=== PATIENT | male | born 1970 | race Caucasian/White ===

== ENCOUNTER 2017-01-04 06:07 | Day surgery (SDC) | payer BC ==
[~2017-01-04] VITALS: Ht 190.5 cm; Wt 134.3 kg
[~2017-01-04 06:07] MED LIST: BAYER CHEWABLE81 MG PO; CENTRUM MEN'S1 EACH PO; ESTER-C 500 MG1 TAB PO; GLUCOSAMINE & C1 CAP PO; IBUPROFEN200 MG PO; KRILL OIL 1,001 EAC1 PO; LUTEIN20 MG PO; VITAMIN B COMPL1 TAB PO; VITAMIN E400 UNI2 PO
[2017-01-04 06:41] VITALS: BP 134/82; Ht 190.5 cm; Wt 134.3 kg
--- NOTE | 2017-01-04 08:28 | NUR ---
NO PREP, NO COUNTS R/T COLONOSCOPY
--- NOTE | 2017-01-04 08:42 | NUR ---
BOVIE PADS IN PLACE RIGHT THIGH
--- NOTE | 2017-01-04 13:44 | NUR ---
1000-ALERT. RESP WITH EASE. NO NAUSEA. PASSING FLATUS. 1030-FULL LIQUID SERVED. 1100-IV D/C. DISCHARGE INSTRUCTIONS REVIEWED. 1105-D/C VIA WHEELCHAIR WITH .
--- NOTE | 2017-01-08 10:04 | HP ---
PATIENT: AMBROSIO LAZCANO MEDICAL RECORD: [id number] ACCOUNT: [id number] LOCATION:DGageOPS : 74 ADMISSION DATE: 01/04/17 HISTORY AND PHYSICAL EXAMINATION CHIEF COMPLAINT: Colon polyps. HISTORY OF PRESENT ILLNESS: The patient is here for surveillance colonoscopy. He had a number of colon polyps that were removed last year. I have reviewed the pathology of those colon polyps. The patient is here for a surveillance colonoscopy. The most worrisome of those polyps last year was tattooed. The risks, possible complications and alternatives to colonoscopy and polypectomy utilizing argon plasma energy efficiency finance manager were explained to the patient. He elects to proceed. ALLERGIES: No known drug allergies. HOME MEDICATIONS: LUTEIN WELL ASPIRIN. SOCIAL HISTORY: He is a smoker. I have advised him to quit smoking. PAST MEDICAL AND SURGICAL HISTORY: Arm surgery as well as a prior colonoscopy. REVIEW OF SYSTEMS: Negative for CVA or seizures. Negative for diabetes or thyroid problems. PHYSICAL EXAMINATION: GENERAL: The patient does not appear acutely ill. He does not appear chronically ill. VITAL SIGNS: Reviewed. HEAD: External ears appear normal. EYES: Extraocular movements are intact. NECK: Trachea is midline. CHEST: No intercostal retractions. PULMONARY: Nonlabored, no stridor. ABDOMEN: Nontender. IMPRESSION: History of complex colon polyps. PLAN: Colonoscopy and polypectomy utilizing argon plasma energy efficiency finance manager. TRANSINT:[id number] Voice Confirmation ID: [id number] DOCUMENT ID: [id number] ANGÉLICA AGOSTO MD at 1004 CC: EMELY OBRIEN DO [id number] DICTATION DATE: 01/04/17 0959 OIL SPECULATOR: 01/04/17 1042 [facility] 01/04/17 [facility] [address] [id number]
--- NOTE | 2017-01-08 10:04 | OP ---
PATIENT NAME: AMBROSIO LAZCANO MEDICAL RECORD: [id number] :74 LOCATION:D.OPS ADMISSION DATE: SURGEON: ZAY AGOSTO MD DATE OF OPERATION: 01/04/2017 PREOPERATIVE DIAGNOSIS: History of multiple colon polyps. POSTOPERATIVE DIAGNOSES: History of multiple colon polyps with minimal regrowth of a colon polyp that was tattooed. Other than that, there were 3 more sessile colon polyps, which were removed utilizing a hot biopsy forceps polypectomy technique. PROCEDURES: 1. Total colonoscopy to cecum. 2. Polypectomy and ablation utilizing the argon plasma physicians and surgeons, which is a radiofrequency type of ablation of benign colonic process. 3. Hot biopsy forceps polypectomies times 3. SURGEON: Zay Agosto MD. LANGUAGE TRANSLATOR: None. BLOOD LOSS: Minimal. ANESTHESIA: General. COMPLICATIONS: None. The risks, possible complications and alternatives to procedure were explained to the patient. He elects to proceed. OPERATIVE COURSE: The patient was conveyed to the operating room electively on 01/04/2017. General anesthesia was induced by the anesthesia staff. The patient was placed in the Sargent position. A digital rectal examination was performed. The prostate was without nodules. It was symmetric and soft. A colonoscope was inserted through the anus. It was easily advanced to the cecum. The prep was excellent. I slowly withdrew the endoscope. I irrigated and aspirated extensively. I dragged the folds. The pullback was greater than a 14-minute pullback. The tattooed area was easily identifiable. There was a small amount of regrowth of the polyp. This was biopsied and then the area was ablated with the argon plasma physicians and surgeons utilizing the right colon setting in the forced mode. In the rectum, more polyps were identified. The polyps were removed utilizing argon plasma physicians and surgeons. There was 1 cluster of 3 polyps, which was included in one of the specimen containers. The specimens were removed in their entireties. A retroflexed view was obtained in the rectum. I then unretroflexed the scope and removed it under direct vision. During this procedure, a combination of direct imaging and narrow band imaging were utilized. I will see the patient in my office in 2-3 weeks. I will plan for his next colonoscopy to take place in the GI lab with anesthesia not utilizing the argon plasma physicians and surgeons. OPERATIVE REPORT [id number] AMBROSIO LAZCANO TRANSINT:[id number] Voice Confirmation ID: [id number] DOCUMENT ID: [id number] ZAY AGOSTO MD at 1004 CC: EMELY OBRIEN DO [id number] DICTATION DATE: 01/04/17 1003 AGRICULTURAL PRODUCE COMMISSION AGENT: 01/04/172034 [facility] 01/04/17 [facility] [address] [id number]
== END 2017-01-04 11:05 | disposition home or self-care (01) ==
LOC: D.OPS 06:07 → D.PAN 10:00 → D.OPS 11:05
DX: K63.5 Polyp of colon (principal); F17.200 Nicotine dependence, unspecified, uncomplicated; Z80.0 Family history of malignant neoplasm of digestive organs; Z01.812 Encounter for preprocedural laboratory examination

== ENCOUNTER 2019-06-16 06:25 | Day surgery (SDC) | payer BC ==
[~2019-06-16] VITALS: Ht 190.5 cm; Wt 140.0 kg
[2019-06-16] MEDS ORDERED: PROVIGIL200 MG PO (08:49)
[2019-06-16 08:52] VITALS: BP 138/79; Ht 190.5 cm; Wt 140.0 kg
--- NOTE | 2019-06-16 11:13 | NUR ---
1113 IV REMOVED AND INSTRUCTIONS GIVEN TO PT
--- NOTE | 2019-06-16 11:17 | OP ---
PATIENT NAME: AMBROSIO LAZCANO MEDICAL RECORD: [id number] :74 LOCATION:D.OPS ADMISSION DATE: SURGEON: ZAY AGOSTO MD DATE OF OPERATION: 06/16/2019 PREOPERATIVE DIAGNOSES: 1. History of multiple colorectal polyps. 2. History of a worrisome colon polyp at 60 cm, which has been tattooed. POSTOPERATIVE DIAGNOSES: 1. History of multiple colorectal polyps. 2. History of a worrisome colon polyp at 60 cm, which has been tattooed. 3. Perhaps some polypoid regrowth right next to the area of tattooing. 4. Six other sessile polyps, which were all small, less than 7 mm in diameter and I felt could be ablated rather than biopsied. PROCEDURES: 1. Total colonoscopy to cecum. 2. Polypectomy utilizing the argon plasma purchasing and claims supervisor. 3. Ablation of 6 colorectal polyps with the argon plasma purchasing and claims supervisor. SURGEON: Zay Agosto MD RACK WASHER: None. BLOOD LOSS: Minimal. ANESTHESIA: IV sedation. COMPLICATIONS: None. ENDOSCOPIC COURSE: The patient was conveyed to the endoscopy suite electively on 06/16/2019. IV sedation was induced by the anesthesia staff. The patient was placed in the Sargent position. A digital rectal examination was performed. The prostate was without nodules and was symmetric. A colonoscope was inserted through the anus. It was easily advanced to the cecum. The prep was adequate. I slowly withdrew the endoscope. A combination of normal imaging and narrow band imaging were utilized. I dragged the folds. I irrigated and aspirated extensively. At 60 cm, the tattooed area was easily identified. On one side of that tattoo, it appeared that there may have been some polypoid regrowth. Cold endoscopic biopsies were performed. The polypectomy was then completed utilizing ablation with the argon plasma purchasing and claims supervisor utilizing the right colon setting in the forced mode. I then slowly withdrew the endoscope. Six other small polyps were noted and these were ablated with the argon plasma purchasing and claims supervisor. A retroflexed view was obtained in the rectum. I then unretroflexed the scope and removed it under direct vision. I will see the patient in my office in 2-3 weeks. It is very likely, I will recommend that his next colonoscopy to take place in 3 years. TRANSINT:[id number] Voice Confirmation ID: [id number] DOCUMENT ID: [id number] OPERATIVE REPORT [id number] AMBROSIO LAZCANO ROBERT MD at 1117 CC: EMELY OBRIEN DO [id number] DICTATION DATE: 06/16/19 1051 ENVIRONMENTAL EDUCATOR: 06/16/19 1114 [facility] [address] [id number]
--- NOTE | 2019-06-16 11:28 | NUR ---
1130 PT LEFT PRIOR TO RIDE COMING UP TO FLOOR. IV REMOVED
== END 2019-06-16 11:29 | disposition home or self-care (01) ==
LOC: D.OPS 06:25
PROVIDERS: ATTEND Surgery
DX: Z86.010 Personal history of colon polyps (principal); D12.7 Benign neoplasm of rectosigmoid junction

== ENCOUNTER 2019-06-19 15:27 | Inpatient (IN) | payer BC ==
[~2019-06-19] VITALS: Ht 190.5 cm; Wt 135.9 kg
[~2019-06-19 15:27] MED LIST changes: +PROVIGIL200 MG PO
[2019-06-19 16:12] LABS: BASOPHILS 0.2 % (0-2); EOSINOPHILS 0.7 % (0-7); HEMOGLOBIN 14.7 g/dL (13.5-17.5); IMMATURE GRANULOCYTES 0.2 % (0-5); LYMPHOCYTES 24.3 % (15-50); MCH 29.5 pg (26.0-34.0); MCHC 33.4 g/dL (31.0-37.0); MCV 88.2 fL (80.0-100.0); MEAN PLATELET VOLUME 9.6 fL (7.4-10.4); MONOCYTES 9.6 % (2-11); PLATELET COUNT 223 10x3/uL (130-400); RBC 4.99 10x6/uL (4.20-6.10); RDW 12.8 % (11.5-14.5); WBC 13.3 10x3/uL (4.8-10.8)
[2019-06-19 16:24] LABS: APPEARANCE CLEAR (CLEAR); BILIRUBIN NEGATIVE (NEGATIVE); COLOR YELLOW (YELLOW); GLUCOSE NEGATIVE (NEGATIVE); KETONE NEGATIVE (NEGATIVE); NITRITE NEGATIVE (NEGATIVE); PROTEIN NEGATIVE (NEGATIVE); UROBILINOGEN NORMAL (NORMAL)
[2019-06-19 16:25] LABS: BACTERIA FEW /hpf (NEGATIVE); RED CELLS - URINE OCC /hpf (0-5); WHITE CELLS - URINE 0-5 /hpf (NEGATIVE)
[2019-06-19 16:29] LABS: CALC OSMOLALITY 278 mosm/kg (275-300); CALCIUM 9.1 mg/dL (8.5-10.1); CHLORIDE - SERUM 103 mmol/L (98-107); GLUCOSE 93 mg/dL (74-106); POTASSIUM - SERUM 3.9 mmol/L (3.5-5.1); SODIUM 139 mmol/L (136-145); UREA NITROGEN 14 mg/dL (7-18); eGFR NON AFRICAN AMERICAN 85 mL/min (90-120)
[2019-06-19 16:34] LABS: ALBUMIN 3.6 g/dL (3.4-5.0); ALKALINE PHOSPHATASE 74 U/L (46-116); ALT (SGPT) 39 U/L (10-68); AMYLASE - SERUM 35 U/L (25-115); BILIRUBIN - TOTAL 1.08 mg/dL (0.2-1.3); LIPASE 110 U/L (73-393)
[2019-06-19 16:35] LABS: TROPONIN-I < 0.017 ng/mL (0.000-0.060)
[2019-06-19 20:37] VITALS: BP 121/85
--- NOTE | 2019-06-19 21:31 | NUR ---
RECEIVED FROM ER VIA WHEELCHAIR. ALERT.ORIENTED. CHEIF COMPLAINT ABD PAIN. IV TO RAC INTACT WITHOUT REDNESS OR EDEMA NOTED. ORIENTED TO ROOM. CL IN REACH
[2019-06-20] VITALS: BP 137/77
[2019-06-20 00:15] VITALS: BP 137/77; BMI 37.4
--- NOTE | 2019-06-20 00:31 | NUR ---
ADMISSION ASSESSMENT COMPLETE.
[2019-06-20 04:00] VITALS: BP 116/63
[2019-06-20 06:49] LABS: ALBUMIN 3.2 g/dL (3.4-5.0); ALKALINE PHOSPHATASE 66 U/L (46-116); ALT (SGPT) 33 U/L (10-68); BILIRUBIN - TOTAL 1.35 mg/dL (0.2-1.3); CALC OSMOLALITY 279 mosm/kg (275-300); CALCIUM 8.5 mg/dL (8.5-10.1); CHLORIDE - SERUM 106 mmol/L (98-107); GLUCOSE 89 mg/dL (74-106); POTASSIUM - SERUM 4.2 mmol/L (3.5-5.1); PROTEIN - SERUM 6.2 g/dL (6.4-8.2); SODIUM 141 mmol/L (136-145); UREA NITROGEN 12 mg/dL (7-18); eGFR NON AFRICAN AMERICAN 85 mL/min (90-120)
--- NOTE | 2019-06-20 06:50 | NUR ---
ALERT AND ORIENTED, RESTING IN BED. NO C/O PAIN. NO S/S OF ACUTE DISTRESS NOTED. IV TO RIGHT AC, NS INFUSING @ 200ML/HR. SITE PATENT WITHOUT REDNESS OR SWELLING. DENIES ANY NEEDS AT THIS TIME. CALL LIGHT IN REACH. WILL CONTINUE TO MONITOR.
[2019-06-20 07:05] LABS: BASOPHILS 0.1 % (0-2); EOSINOPHILS 0.8 % (0-7); HEMATOCRIT 41.6 % (42.0-54.0); HEMOGLOBIN 13.9 g/dL (13.5-17.5); IMMATURE GRANULOCYTES 0.3 % (0-5); LYMPHOCYTES 19.4 % (15-50); MCH 29.4 pg (26.0-34.0); MCHC 33.4 g/dL (31.0-37.0); MCV 88.1 fL (80.0-100.0); MEAN PLATELET VOLUME 10.1 fL (7.4-10.4); NEUTROPHILS 70.4 % (40-80); PLATELET COUNT 218 10x3/uL (130-400); RBC 4.72 10x6/uL (4.20-6.10); RDW 12.9 % (11.5-14.5); WBC 11.1 10x3/uL (4.8-10.8)
[2019-06-20 08:25] VITALS: Ht 190.5 cm; Wt 135.9 kg
[2019-06-20 08:26] VITALS: BP 112/73
[2019-06-20 16:23] VITALS: BP 127/78
--- NOTE | 2019-06-20 18:48 | NUR ---
ALERT AND ORIENTED, SITTING UP IN BED. FAMILY AT BEDSIDE. NO C/O PAIN. NO S/S OF ACUTE DISTRESS NOTED. DENIES ANY NEEDS AT THIS TIME. CALL LIGHT IN REACH. WILL CONTINUE TO MONITOR.
[2019-06-20 20:00] VITALS: BP 140/76
--- NOTE | 2019-06-20 20:45 | NUR ---
RESTING QUEITLY WITH NO DISTRESS NOTED. RESP UNLABORED. IV TO RAC WITHOUT REDNESS OR EDEMA NOTED. CL IN REACH
[2019-06-21] VITALS: BP 109/67
--- NOTE | 2019-06-21 05:48 | NUR ---
I have reviewed this patient and I concur with the Shift Assessment completed by the Licensed Practical Nurse today this shift.
[2019-06-21 06:12] LABS: BASOPHILS 0.3 % (0-2); HEMATOCRIT 39.1 % (42.0-54.0); HEMOGLOBIN 13.1 g/dL (13.5-17.5); IMMATURE GRANULOCYTES 0.3 % (0-5); LYMPHOCYTES 19.9 % (15-50); MCH 29.4 pg (26.0-34.0); MCHC 33.5 g/dL (31.0-37.0); MCV 87.7 fL (80.0-100.0); MEAN PLATELET VOLUME 9.7 fL (7.4-10.4); MONOCYTES 8.8 % (2-11); NEUTROPHILS 69.7 % (40-80); PLATELET COUNT 217 10x3/uL (130-400); RBC 4.46 10x6/uL (4.20-6.10); RDW 12.6 % (11.5-14.5)
[2019-06-21 06:13] LABS: WBC 7.8 10x3/uL (4.8-10.8)
[2019-06-21 06:25] LABS: CALC OSMOLALITY 279 mosm/kg (275-300); CALCIUM 8.3 mg/dL (8.5-10.1); CARBON DIOXIDE 22.8 mmol/L (21.0-32.0); CHLORIDE - SERUM 107 mmol/L (98-107); GLUCOSE 78 mg/dL (74-106); POTASSIUM - SERUM 3.8 mmol/L (3.5-5.1); SODIUM 141 mmol/L (136-145); UREA NITROGEN 12 mg/dL (7-18); eGFR NON AFRICAN AMERICAN 85 mL/min (90-120)
--- NOTE | 2019-06-21 07:00 | NUR ---
ALERT AND ORIENTED, SITTING UP IN BED. NO C/O PAIN. NO S/S OF ACUTE DISTRESS NOTED. IV TO RIGHT AC, NS INFUSING @ 200ML/HR. SITE PATENT WITHOUT REDNESS OR SWELLING. DENIES ANY NEEDS AT THIS TIME. CALL LIGHT IN REACH. WILL CONTINUE TO MONITOR.
[2019-06-21 07:57] VITALS: BP 132/77
--- NOTE | 2019-06-21 09:23 | NUR ---
AWAKE AND ON COMPUTER. DENIES NEEDS.CALL LIGHT IN REACH
[2019-06-21 12:11] VITALS: BP 139/86
[2019-06-21 16:19] VITALS: BP 121/78
--- NOTE | 2019-06-21 18:37 | NUR ---
ALERT AND ORIENTED, RESTING IN BED. DENIES ANY NEEDS AT THIS TIME. CALL LIGHT IN REACH. WILL CONTINUE TO MONITOR.
--- NOTE | 2019-06-21 19:45 | NUR ---
AWAKE,ALERT.NO COMPLAITNS VOICED. RESP EVEN AND UNALBORED. NO DISTRESS NOTED. IV TO LAC INTACT WITHOUT REDNESS OR EDEMA NOTED. CL IN REACH.
[2019-06-21 20:52] VITALS: BP 135/85
--- NOTE | 2019-06-22 02:45 | NUR ---
I have reviewed this patient and I concur with the Shift Assessment completed by the Licensed Practical Nurse today this shift.
[2019-06-22 05:45] VITALS: BP 118/67
[2019-06-22 05:47] LABS: BASOPHILS 0.3 % (0-2); EOSINOPHILS 1.5 % (0-7); HEMATOCRIT 39.6 % (42.0-54.0); HEMOGLOBIN 13.3 g/dL (13.5-17.5); IMMATURE GRANULOCYTES 0.3 % (0-5); LYMPHOCYTES 20.8 % (15-50); MCH 29.3 pg (26.0-34.0); MCHC 33.6 g/dL (31.0-37.0); MCV 87.2 fL (80.0-100.0); MEAN PLATELET VOLUME 9.2 fL (7.4-10.4); MONOCYTES 10.3 % (2-11); NEUTROPHILS 66.8 % (40-80); PLATELET COUNT 231 10x3/uL (130-400); RBC 4.54 10x6/uL (4.20-6.10); RDW 12.5 % (11.5-14.5); WBC 6.7 10x3/uL (4.8-10.8)
[2019-06-22 06:20] LABS: CALC OSMOLALITY 278 mosm/kg (275-300); CALCIUM 8.4 mg/dL (8.5-10.1); CARBON DIOXIDE 24.9 mmol/L (21.0-32.0); CHLORIDE - SERUM 107 mmol/L (98-107); GLUCOSE 91 mg/dL (74-106); SODIUM 141 mmol/L (136-145); UREA NITROGEN 8 mg/dL (7-18); eGFR NON AFRICAN AMERICAN 85 mL/min (90-120)
--- NOTE | 2019-06-22 07:41 | NUR ---
AWAKE AND ALERT. ORIENTED X3. LUNGS ARE CLEAR BILATERALLY, NO COUGH NOTED. SKIN IS INTACT WITHOUT REDNESS. IV TO RIGHT AC IS PATENT WITHOUT REDNESS AT INSERTION SITE. DENIES NEEDS.
[2019-06-22 08:38] VITALS: BP 135/87
--- NOTE | 2019-06-22 09:30 | NUR ---
TOOK AM MEDS AFTER DISCUSSED NEED FOR SAME WITH NURSE. ALL QUESTIONS ANSWERED. UP TO SHOWER WITH SET UP ASSISTANCE ONLY.
[2019-06-22 12:48] VITALS: BP 136/86
--- NOTE | 2019-06-22 13:21 | NUR ---
WAS ABLE TO FEED SELF LUNCH WITH SET UP ASSISTANCE. NO NEEDS NOTED.
--- NOTE | 2019-06-22 13:22 | NUR ---
SITTING UP IN BED EATING REGULAR DIET. NO C/O PAIN OR NAUSEA WITH MEAL. WILL MONITOR.
[2019-06-22 16:43] VITALS: BP 129/85
--- NOTE | 2019-06-22 19:08 | NUR ---
ATE ALL OF SUPPER WITHOUT C/O NAUSEA OR PAIN. DENIES NEEDS. NO CHANGES NOTED.
[2019-06-22 20:20] VITALS: BP 143/94
--- NOTE | 2019-06-22 21:30 | NUR ---
A&O X 4. DENIES PAIN, TOLERATING REGULAR DIET. REPORTS LAST BM WAS JUST PRIOR TO ME ENTERING ROOM, STATES IT WAS SOFT, NON FORMED AND WOULD LIKE TO SKIP NEXT DOSE OF MIRALAX. WILL CONTINUE TO MONITOR.
--- NOTE | 2019-06-22 21:30 | NUR ---
REFUSES MIDNIGHT VITALS
--- NOTE | 2019-06-23 04:35 | NUR ---
I have reviewed this patient and I concur with the Shift Assessment completed by the Licensed Practical Nurse today this shift.
[2019-06-23 05:48] LABS: BASOPHILS 0.2 % (0-2); EOSINOPHILS 1.4 % (0-7); HEMATOCRIT 41.3 % (42.0-54.0); HEMOGLOBIN 13.9 g/dL (13.5-17.5); IMMATURE GRANULOCYTES 0.2 % (0-5); LYMPHOCYTES 21.6 % (15-50); MCH 29.2 pg (26.0-34.0); MCHC 33.7 g/dL (31.0-37.0); MCV 86.8 fL (80.0-100.0); MEAN PLATELET VOLUME 9.5 fL (7.4-10.4); MONOCYTES 10.1 % (2-11); NEUTROPHILS 66.5 % (40-80); PLATELET COUNT 257 10x3/uL (130-400); RBC 4.76 10x6/uL (4.20-6.10); RDW 12.2 % (11.5-14.5)
[2019-06-23 05:54] LABS: WBC 8.5 10x3/uL (4.8-10.8)
[2019-06-23 05:58] LABS: CALC OSMOLALITY 281 mosm/kg (275-300); CALCIUM 8.8 mg/dL (8.5-10.1); CARBON DIOXIDE 26.3 mmol/L (21.0-32.0); CHLORIDE - SERUM 105 mmol/L (98-107); CREATININE - SERUM 0.9 mg/dL (0.6-1.3); GLUCOSE 96 mg/dL (74-106); POTASSIUM - SERUM 4.2 mmol/L (3.5-5.1); SODIUM 142 mmol/L (136-145); UREA NITROGEN 9 mg/dL (7-18); eGFR NON AFRICAN AMERICAN > 90 mL/min (90-120)
--- NOTE | 2019-06-23 07:58 | NUR ---
AWAKE AND ALERT.ORIENTED X3. NO C/O AT THIS TIME. LUNGS ARE CLEAR BILATERALLY, NO COUGH NOTED. SKIN IS INTACT WITHOUT REDNESS. IV TO RIGHT AC IS PATENT WITHOUT REDNESS AT INSERTION SITE. UP TO BR PER SELF. DENIES NEEDS.
[2019-06-23 08:05] VITALS: BP 168/93
--- NOTE | 2019-06-23 09:00 | NUR ---
UP TO SHOWER WITH SET UP ASSISTANCE. NO C/O AT THIS TIME.
--- NOTE | 2019-06-23 10:08 | MORECARE ---
CASE MANAGEMENT DISCHARGE SUMMARY PATIENT: AMBROSIO DENNISON UNIT: [id number] ADM DATE: 06/19/19 AGE: 49 : 74 SEX: M ROOM/BED: D.2225 AUTHOR: BECKIE,DOC PHYSICIAN: REFERRING PHYSICIAN: ANGÉLICA AGOSTO MD DATE OF SERVICE: 06/23/19 Discharge Plan Patient Name: AMBROSIO DENNISON Facility[facility] : 1970 Planned Disposition: Home Anticipated Discharge Date: 06/23/19 Discharge Date: Expected LOS: 4 Initial Reviewer: [email or web address] Initial Review Date: 06/23/2019 Generated: 06/23/19 11:08 am Comments DCP- Discharge Planning Updated by [email or web address]: Jenny Flowers on 06/23/19 9:[address] Patient Name: AMBROSIO DENNISON Admission Status: ER Accout number: [id number] Admission Date: 06-19-2019 : 1970 Admission Diagnosis: Attending: ANGÉLICA AGOSTO Current LOS: 4 Anticipated DC Date: 06-23-2019 Planned Disposition: Home Primary Insurance: [employer] OUT OF STATE Discharge Planning Comments: CM met with patient to complete initial dc planning assessment. CM educated patient on the CM role and verbal consent given by patient to complete assessment. Patient lives at home with his spouse. At discharge patient plans to return and feels this is a safe discharge. States he has a friend driving him home. CM discussed availability of home health, rehab services, and medical equipment. Patient denied known discharge needs at this time. He did ask for a patient summary, I provided him with the Patient health summary given on discharge. CM will continue to follow and will assist as needed with dc plans/needs. Game Attendant: Jenny Flowers DCPIA - Discharge Planning Initial Assessment Updated by [email or web address]: Jenny Flowers on 06/23/19 10:03 am * Is the patient Alert and Oriented? Yes * How many steps to enter\exit or inside your home? 5/flight * PCP Dr. Kimble * Pharmacy [facility] [address] * Preadmission Environment Home with Family * ADLs Independent * Equipment None * List name and contact numbers for known caregivers / representatives who currently or will assist patient after discharge: Sindy Dennison - spouse - [phone] * Verbal permission to speak to the caregivers and representatives has been obtained from the patient. Yes * Community resources currently utilized None * Additional services required to return to the preadmission environment? No * Can the patient safely return to the preadmission environment? Yes * Has this patient been hospitalized within the prior 30 days at any hospital? No Patient Name: AMBROSIO DENNISON Page 00562 at 1008 All edits/amendments must be made on the electronic document DICTATION DATE: 06/23/19 100 TRAFFIC OR SYSTEM DISPATCHER: NABEEL 06/23/19 1008 RPT#: [id number] DC DATE: STATUS: ADM IN [facility] [address] [place] [address] END OF REPORT
[2019-06-23 12:27] VITALS: BP 131/89
--- NOTE | 2019-06-23 13:05 | NUR ---
DISCHARGED TO HOME AMBULATORY WITH FRIEND. DISCHARGE INSTRUCTIONS GIVEN BOTH VERBALLY AND WRITTEN. ALL QUESTIONS ANSWERED. PATIENT VERBALIZED UNDERSTANDING OF SAME. NO NEW PRESCRIPTIONS NEEDED. REFUSED FLU VACCINE. IV TO RIGHT AC D/C WITH CATHETER INTACT.
--- NOTE | 2019-06-23 13:17 | MORECARE ---
CASE MANAGEMENT DISCHARGE SUMMARY PATIENT: AMBROSIO DENNISON UNIT: [id number] ADM DATE: 06/19/19 AGE: 49 : 74 SEX: M ROOM/BED: D.2225 AUTHOR: AROLDO BUTTS PHYSICIAN: REFERRING PHYSICIAN: ANGÉLICA AGOSTO MD DATE OF SERVICE: 06/23/19 Discharge Plan Patient Name: AMBROSIO DENNISON Facility: [facility]:[place] : 1970 Planned Disposition: Home Anticipated Discharge Date: 06/23/19 Discharge Date: Expected LOS: 4 Initial Reviewer: [email or web address] Initial Review Date: 06/23/2019 Generated: 06/23/19 2:16 pm Comments DCP- Discharge Planning Updated by [email or web address]: Jenny Flowers on 06/23/19 12:[address] Patient Name: AMBROSIO DENNISON Encounter No: [id number] : 1970 Primary Insurance: [employer] OUT OF STATE Anticipated DC Date: 06-23-2019 Planned Disposition: Home External Planned Provider: : DCP follow-up note: Patient and family in agreement with discharge plan. No changes to plan. Case management will follow and assist as needed. Jenny Flowers DCP- Discharge Planning Updated by [email or web address]: Jenny Flowers on 06/23/19 9:[address] Patient Name: AMBROSIO DENNISON Admission Status: ER Accout number: [id number] Admission Date: 06-19-2019 : 1970 Admission Diagnosis: Attending: ANGÉLICA AGOSTO Current LOS: 4 Anticipated DC Date: 06-23-2019 Planned Disposition: Home Primary Insurance: BLUE [employer] OUT OF STATE Discharge Planning Comments: CM met with patient to complete initial dc planning assessment. CM educated patient on the CM role and verbal consent given by patient to complete assessment. Patient lives at home with his spouse. At discharge patient plans to return and feels this is a safe discharge. States he has a friend driving him home. CM discussed availability of home health, rehab services, and medical equipment. Patient denied known discharge needs at this time. He did ask for a patient summary, I provided him with the Patient health summary given on discharge. CM will continue to follow and will assist as needed with dc plans/needs. Bill Recapitulation Clerk: Jenny Flowers DCPIA - Discharge Planning Initial Assessment Updated by [email or web address]: Jenny Lionel on 06/23/19 10:03 am * Is the patient Alert and Oriented? Yes * How many steps to enter\exit or inside your home? 5/flight * PCP Dr. Kimble * Pharmacy [facility] on [address] * Preadmission Environment Home with Family * ADLs Independent * Equipment None * List name and contact numbers for known caregivers / representatives who currently or will assist patient after discharge: Sindy Dennison - [facility] - [phone] * Verbal permission to speak to the caregivers and representatives has been obtained from the patient. Yes * Community resources currently utilized None * Additional services required to return to the preadmission environment? No * Can the patient safely return to the preadmission environment? Yes * Has this patient been hospitalized within the prior 30 days at any hospital? No Last DP export: 06/23/19 9:08 a Patient Name: AMBROSIO DENNISON Page [phone] at 1317 All edits/amendments must be made on the electronic document DICTATION DATE: 06/23/19 1316 STROBOROMA OPERATOR: NABEEL 06/23/19 1316 RPT#: [id number] DC DATE: STATUS: ADM IN [facility] [address] [place] [address] END OF REPORT
[2019-06-23] MEDS ORDERED: COLACE100 MG PO (13:32)
[2019-06-23] MEDS ORDERED: LEVAQUIN750 MG PO (13:33)
[2019-06-23] MEDS ORDERED: HYDROCODON-ACE1 EAC7 PO (13:33)
[2019-06-23] MEDS ORDERED: FLAGYL500 MG PO (13:34)
--- NOTE | 2019-06-24 18:56 | DS ---
PATIENT:AMBROSIO LAZCANO :74 MEDICAL RECORD: [id number] DISCHARGE SUMMARY ADMISSION DATE: 06/19/19 DISCHARGE DATE: 06/23/19 PRINCIPAL DIAGNOSES: Iatrogenic colonoscopic microperforation, contained. SECONDARY DIAGNOSIS: History of bicipital tear with a repair, history of myringotomy tubes, history of tonsillectomy and adenoidectomy, and history of eye surgery. HOSPITAL COURSE: The patient recently underwent a colonoscopy with polypectomy. The patient presented with abdominal pain. CT scan revealed microperforation. I do not think this was due to diverticulitis. When I performed a colonoscopy on the patient, I did not identify any diverticular disease. The colon polyp was removed at 60 cm, which should have been the descending; however, the area of the inflammation and the microperforation was in the sigmoid colon. The patient was treated with IV antibiotics. His diet was advanced. At time of dismissal, he was afebrile. He was not tachycardic. He was having no abdominal pain. His white count was normal. He was having bowel function. He is being dismissed home on Colace, Levaquin, Flagyl, and Barry. He is to take 1 week off work. There is no need for him to follow up with me in the office unless he develops recurrent abdominal pain or fever. In that instance, he is to call us immediately. TRANSINT:[id number] Voice Confirmation ID: [id number] DOCUMENT ID: [id number] ANGÉLICA AGOSTO MD at 1856 CC: [id number] DICTATION DATE: 06/23/19 1125 CORE WINDER: 06/23/19 2356 DIS IN 06/23/19 [facility] [address] [place] [address]
--- NOTE | 2019-06-28 16:20 | MORECARE ---
CASE MANAGEMENT DISCHARGE SUMMARY PATIENT: AMBROSIO DENNISON UNIT: [id number] ADM DATE: 06/19/19 AGE: 49 : 74 SEX: M ROOM/BED: D.2225 AUTHOR: AROLDO BUTTS PHYSICIAN: REFERRING PHYSICIAN: ANGÉLICA AGOSTO MD DATE OF SERVICE: 06/28/19 Discharge Plan Patient Name: AMBROSIO DENNISON Facility: [facility]:[place] : 1970 Planned Disposition: Home Anticipated Discharge Date: 06/23/19 Discharge Date: 06/23/2019 Expected LOS: 4 Initial Reviewer: [email or web address] Initial Review Date: 06/23/2019 Generated: 06/28/19 5:19 pm Comments DCP- Discharge Planning Updated by [email or web address]: Jenny Flowers on 06/23/19 12:[address] Patient Name: AMBROSIO DENNISON Encounter No: [id number] : 1970 Primary Insurance: BLUE Ratio OUT OF STATE Anticipated DC Date: 06-23-2019 Planned Disposition: Home External Planned Provider: : DCP follow-up note: Patient and family in agreement with discharge plan. No changes to plan. Case management will follow and assist as needed. Jenny Flowers DCP- Discharge Planning Updated by [email or web address]: Jenny Flowers on 06/23/19 9:[address] Patient Name: AMBROSIO DENNISON Admission Status: ER Accout number: [id number] Admission Date: 06-19-2019 : 1970 Admission Diagnosis: Attending: ANGÉLICA AGOSTO Current LOS: 4 Anticipated DC Date: 06-23-2019 Planned Disposition: Home Primary Insurance: BLUE Ratio OUT OF STATE Discharge Planning Comments: CM met with patient to complete initial dc planning assessment. CM educated patient on the CM role and verbal consent given by patient to complete assessment. Patient lives at home with his spouse. At discharge patient plans to return and feels this is a safe discharge. States he has a friend driving him home. CM discussed availability of home health, rehab services, and medical equipment. Patient denied known discharge needs at this time. He did ask for a patient summary, I provided him with the Patient health summary given on discharge. CM will continue to follow and will assist as needed with dc plans/needs. Geospatial Technician: Jenny Flowers DCPIA - Discharge Planning Initial Assessment Updated by [email or web address]: Jenny Lionel on 06/23/19 10:03 am * Is the patient Alert and Oriented? Yes * How many steps to enter\exit or inside your home? 5/flight * PCP Dr. Kimble * Pharmacy [facility] [address] * Preadmission Environment Home with Family * ADLs Independent * Equipment None * List name and contact numbers for known caregivers / representatives who currently or will assist patient after discharge: Sindy Dennison - spouse - [phone] * Verbal permission to speak to the caregivers and representatives has been obtained from the patient. Yes * Community resources currently utilized None * Additional services required to return to the preadmission environment? No * Can the patient safely return to the preadmission environment? Yes * Has this patient been hospitalized within the prior 30 days at any hospital? No Last DP export: 06/23/19 12:17 p Patient Name: AMBROSIO DENNISON Page [phone] at 1620 All edits/amendments must be made on the electronic document DICTATION DATE: 06/28/191618 INTEGRATION AIDE: NABEEL 06/28/191618 RPT#: [id number] DC DATE:06/23/19 STATUS: DIS IN [facility] [address] [place] [address] END OF REPORT
== END 2019-06-23 13:05 | disposition home or self-care (01) | DRG 920 ==
LOC: D.ER 15:27 → D.MS 20:52
PROVIDERS: Family Medicine; Surgery; ADMIT Surgery; ATTEND Surgery
DX: K91.71 Accidental puncture and laceration of a digestive system organ or structure during a digestive system procedure (principal); K57.20 Diverticulitis of large intestine with perforation and abscess without bleeding; F17.210 Nicotine dependence, cigarettes, uncomplicated